=== PATIENT | female | born 2000 | race Caucasian/White ===

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

== ENCOUNTER 2022-09-26 11:42 | Emergency (ER) | payer OTHER ==
[2022-09-26 11:53] VITALS: BP 139/75; PULSE 78; RESP 18; TEMP 98.2; BMI 40.3
[2022-09-26 14:30] LABS: EOS % 1.4 % (0-4.5); HEMOGLOBIN 13.9 GM/dL (10.7-15.3); LYMPH % 37.6 % (8-40); MCH 27.3 pg (25.7-33.7); MCHC 33.9 g/dl (32.0-36.0); MEAN CELL VOLUME 80.6 fl (80-96); MEAN PLT VOLUME 9.9 fl (7.5-11.1); MONO % 5.1 % (3.8-10.2); NEUT % 54.9 % (42.8-82.8); PLATELET COUNT 371 10^3/uL (134-434); RBC 5.09 M/mm3 (3.60-5.2); RDW 13.5 % (11.6-15.6)
[2022-09-26 14:38] LABS: INR 1.07 (0.83-1.09); PROTHROMBIN TIME (PATIENT) 12.3 SEC (9.7-13.0)
[2022-09-26 14:41] LABS: ACTIVATED PTT 30.9 SECONDS (25.2-36.5)
[2022-09-26 15:06] LABS: ALBUMIN 4.6 g/dl (3.4-5.0); BLOOD UREA NITROGEN 14.3 mg/dL (7-18); MAGNESIUM 2.1 mg/dL (1.8-2.4)
[2022-09-26 15:09] LABS: CREATININE 0.8 mg/dL (0.55-1.3)
[2022-09-26 15:10] LABS: TOT PROT 8.7 g/dl (6.4-8.2)
[2022-09-26 15:11] LABS: BILIRUBIN,TOTAL 0.6 mg/dL (0.2-1)
[2022-09-26 15:12] LABS: CALCIUM 10.2 mg/dL (8.5-10.1)
[2022-09-26] MEDS ORDERED: ACETAMINOPHEN 500 MG TABLET (FP) PO ONE (16:32)
[2022-09-26] MEDS ORDERED: ACETAMINOPHEN 325 MG TABLET (FP) ONE (17:13)
== END 2022-09-26 20:16 | disposition home or self-care (01) ==
LOC: JER 11:42
DX: R00.2 Palpitations (principal); R06.02 Shortness of breath; R94.5 Abnormal results of liver function studies
CPT/HCPCS: 36415; 71046-TC-FY; 76705-TC; 80053; 83735; 84484; 84703; 85025; 85379; 85610; 85730; 86850; 86900; 86901; 93005; 93010; 99285-25